=== PATIENT | male | born 2000 | race American Indian/Alaskan Native ===

== ENCOUNTER 2019-08-28 22:52 | Emergency (ER) | payer OTHER ==
[2019-08-28 23:28] VITALS: BP 119/63
--- NOTE | 2019-08-29 05:59 | Emergency Department Report ---
ED General Adult HPI - General Chief complaint: Chest Pain Stated complaint: BACK/CHEST PAIN Time Seen by Provider: 08/29/19 05:48 Source: patient Mode of arrival: Ambulatory Limitations: No Limitations - History of Present Illness Initial comments: Mr. Love is a 19-year-old -Citizen Of [place] male who presents for generalized body aches 1 week history of saying for the last year. Patient denies shortness of breath, no nausea /vomiting ,no fever or chills, no wheezing. Pain is relieved by belching. Pain is exacerbated by nothing per patient. Patient is tolerating by mouth intake. Patient is sleeping quietly at this time with nad. . Onset/Timin -: year(s) Location: chest, back, upper extremity, lower extremity Radiation: back Severity scale (0 -10): 4 Quality: aching Consistency: intermittent Improves with: none Worsens with: none Associated Symptoms: denies other symptoms Treatments Prior to Arrival: none - Related Data Previous Rx's Medication Instructions Recorded Last Taken Type Ibuprofen [Motrin 800 MG tab] 800 mg PO Q8HR PRN #30 tablet 08/29/19 Unknown Rx Allergies Allergy/AdvReac Type Severity Reaction Status Date / Time No Known Allergies Allergy Unverified 08/29/19 01:24 ED Review of Systems ROS: Stated complaint: BACK/CHEST PAIN Other details as noted in HPI Constitutional: denies: chills, fever Eyes: denies: eye pain, eye discharge, vision change ENT: denies: ear pain, throat pain Respiratory: denies: cough, shortness of breath, wheezing Cardiovascular: chest pain (right lateral chest wall pain ). denies: palpitations Endocrine: no symptoms reported Gastrointestinal: denies: abdominal pain, nausea, vomiting, diarrhea, constipation, melena Genitourinary: denies: urgency, dysuria, frequency, hematuria, discharge Musculoskeletal: back pain (aching intermittent). denies: joint swelling, arthralgia, myalgia Skin: denies: rash, lesions Neurological: denies: headache, weakness, numbness, paresthesias, confusion, abnormal gait, vertigo Psychiatric: denies: anxiety, depression Hematological/Lymphatic: denies: easy bleeding, easy bruising ED Past Medical Hx - Past Medical History Previous Medical History?: Yes Additional medical history: Back pain since age 13 - Surgical History Past Surgical History?: No - Social History Smoking Status: Never Smoker Substance Use Type: None - Medications Home Medications: Home Medications Medication Instructions Recorded Confirmed Last Taken Type Ibuprofen [Motrin 800 MG tab] 800 mg PO Q8HR PRN #30 tablet 08/29/19 Unknown Rx ED Physical Exam - General Limitations: No Limitations General appearance: alert, in no apparent distress - Head Head exam: Present: atraumatic, normocephalic - Eye Eye exam: Present: normal appearance, PERRL, EOMI Pupils: Present: normal accommodation - ENT ENT exam: Present: mucous membranes moist - Neck Neck exam: Present: normal inspection, full ROM. Absent: tenderness, lymphad enopathy - Respiratory Respiratory exam: Present: normal lung sounds bilaterally. Absent: respiratory distress, wheezes, stridor, chest wall tenderness - Cardiovascular Cardiovascular Exam: Present: regular rate, normal rhythm, normal heart sounds. Absent: systolic murmur, diastolic murmur, rubs, gallop - GI/Abdominal GI/Abdominal exam: Present: soft, normal bowel sounds. Absent: distended, tenderness, bruit, hernia - Rectal Rectal exam: Present: deferred - Extremities Exam Extremities exam: Present: normal inspection, full ROM, normal capillary refill. Absent: tenderness, pedal edema - Back Exam Back exam: Present: normal inspection, full ROM. Absent: tenderness, CVA tenderness (R), CVA tenderness (L), vertebral tenderness - Neurological Exam Neurological exam: Present: alert, oriented X3, CN II-XII intact, normal gait - Psychiatric Psychiatric exam: Present: normal affect, normal mood - Skin Skin exam: Present: warm, dry, intact, normal color. Absent: rash ED Course Vital Signs 08/28/19 23:25 Temperature 98.1 F Pulse Rate 68 Respiratory 18 Rate Blood Pressure 119/63 O2 Sat by Pulse 98 Oximetry ED Medical Decision Making - Medical Decision Making thid is musculoskeletal pain versus malingering , plan: ibuprofen prn pain bodyache, follow up wiht pcp in 2-3 days return to emergency if symptoms worsen. Critical care attestation.: If time is entered above; I have spent that time in minutes in the direct care of this critically ill patient, excluding procedure time. ED Disposition Clinical Impression: Body aches Disposition: TO HOME OR SELFCARE Is pt being admited?: No Does the pt Need Aspirin: No Condition: Stable Instructions: Musculoskeletal Pain (ED) Prescriptions: Ibuprofen [Motrin 800 MG tab] 800 mg PO Q8HR PRN #30 tablet PRN Reason: Pain , Severe (7-10) Referrals: AMY BRUNO MD [Primary Care Provider] - 3-5 Days Forms: Work/School Release Form(ED) Time of Disposition: 06:04
== END 2019-08-29 06:15 | disposition home or self-care (01) ==
LOC: ED 22:52
DX: M79.10 Myalgia, unspecified site (principal); Z79.1 Long term (current) use of non-steroidal anti-inflammatories (NSAID)
CPT/HCPCS: 93005; 93010; 99282

== ENCOUNTER 2021-03-08 13:01 | Emergency (ER) | payer SELFPAY ==
--- NOTE | 2021-03-08 15:43 | Emergency Department Report ---
ED General Adult HPI - General Chief complaint: Upper Respiratory Infection Stated complaint: CHEST PAIN, NAUSEA Time Seen by Provider: 03/08/21 15:33 Source: patient Mode of arrival: Ambulatory Limitations: No Limitations - History of Present Illness Initial comments: 20-year-old male patient presents to the emergency department with complaints of chest pain and associated nausea starting 1 week ago. Describes the chest pain as "sharp," worse with exertion, relieved with rest. Patient states he noticed the pain was worse while he was at work. Patient works in a warehouse requiring constant physical activity. No history of hypertension, diabetes, hyperlipidemia. Patient does not use tobacco. No family history of early heart disease. No medications prior to arrival. Denies fever, chills, cough, shortness of breath, palpitations, syncope, wheezing, lower extremity pain/swelling. Denies all other complaints at this time. - Related Data Previous Rx's Medication Instructions Recorded Last Taken Type Ibuprofen [Motrin 800 MG tab] 800 mg PO Q8HR PRN #30 tablet 08/29/19 Unknown Rx Famotidine [Pepcid] 20 mg PO BID 10 Days tablet 03/08/21 Unknown Rx Allergies Allergy/AdvReac Type Severity Reaction Status Date / Time No Known Allergies Allergy Verified 03/08/21 17:06 ED Review of Systems ROS: Stated complaint: CHEST PAIN, NAUSEA Other details as noted in HPI Other: GENERAL: Negative for fever, chills, weight change, anorexia, fatigue. ENT: Negative for ear pain, difficulty hearing, sore throat, nasal congestion, epistaxis. CARDIOVASCULAR: Positive for chest pain. PULMONARY: Negative for cough, dyspnea, wheezing, orthopnea, cyanosis. GASTROINTESTINAL: Positive for nausea. MUSCULOSKELETAL: Negative for joint pain, joint swelling, myalgias, back pain, neck pain. NEUROLOGICAL: Negative for headache, seizure, syncope, paresthesias, weakness. INTEGUMENTARY: Negative for erythema, rash, diaphoresis, laceration, ecchymosis. HEMATOLOGICAL: Negative for hemoptysis, hematemesis, hematochezia, hematuria. PSYCHIATRIC: Negative for hallucinations, suicidal ideation, homicidal ideation, anxiety, depression. ED Past Medical Hx - Past Medical History Previous Medical History?: No Additional medical history: Back pain since age 13 - Surgical History Past Surgical History?: No - Social History Smoking Status: Never Smoker Substance Use Type: None - Medications Home Medications: Home Medications Medication Instructions Recorded Confirmed Last Taken Type Ibuprofen [Motrin 800 MG tab] 800 mg PO Q8HR PRN #30 tablet 08/29/19 Unknown Rx Famotidine [Pepcid] 20 mg PO BID 10 Days tablet 03/08/21 Unknown Rx ED Physical Exam - General Limitations: No Limitations - Other Other exam information: General: Awake and alert. No acute distress. Head: Atraumatic, normocephalic. Eyes: EOMI. Pupils are equal and round. Normal sclera and conjunctiva. ENT: Oral mucosa is moist. Normal pharyngeal exam. Neck: Supple. No lymphadenopathy. Pulmonary: No respiratory distress. Clear to auscultation bilaterally. Cardiac: Regular rate and rhythm. Pulses are palpable and equal bilaterally. No lower extremity cyanosis or edema. Skin: Warm and dry. No rashes. Abdomen: Soft, non-tender, non-protuberant. No guarding, rigidity, or rebound. Bowel sounds are normal. No organomegaly or masses noted. Back: Normal alignment. No CVA tenderness. Extremities: Symmetrical. Full range of motion intact. Neurological: Alert and oriented, appropriately interactive, no focal deficits. Psych: Cooperative. Appropriate mood and affect. Speech is evenly metered. Thoughts are logically construed. ED Course Vital Signs 03/08/21 13:11 Temperature 98.3 F Pulse Rate 63 Respiratory 16 Rate Blood Pressure 131/87 [Right] O2 Sat by Pulse 100 Oximetry ED Medical Decision Making - EKG Data 03/08/21 17:07 EKG shows sinus bradycardia with a ventricular rate of 53 bpm. First-degree AV block with VT interval 213 ms. Normal axis. Normal QT interval. Good R wave progression. Early repolarization noted to anterolateral leads. EKG over read by attending emergency physician, who agrees with this interpretation. - Medical Decision Making Differential diagnosis including but not limited to: cardiac arrhythmia, pericarditis, pericardial effusion/cardiac tamponade, pneumothorax, pleural eff usion, pneumonia, pulmonary embolism, esophagitis Patient presents to the emergency department with signs and/or symptoms that arise low risk clinical suspicion for pulmonary embolism. The patient has none of the following clinical criteria: age >50, heart rate >100, room air O2 saturation <94%, history of DVT/PE, recent trauma/surgery, hemoptysis, exogenous estrogen, or signs/symptoms of DVT. As a result, this patient has very low probability of pulmonary embolism and further testing is not indicated. On reevaluation, patient is stable. He is asymptomatic. EKG without acute injury pattern. Chest x-ray is negative. Exceedingly low clinical suspicion for acute coronary syndrome given patient's age and absence of cardiac risk factors. No clinical indication for further diagnostic work-up on an emergent basis at this time. Suspect patient's discomfort may be attributable to GERD/esophageal irritation in the setting of associated nausea. Patient does admit to frequent consumption of spicy foods. Patient will be discharged home with prescription for H2 zion and referred to primary care provider for close outpatient follow-up. Patient expressed understanding and is agreeable to plan of care. Lifestyle modifications discussed. Strict return precautions provided. Repeat exam is unremarkable and benign. History, exam, diagnostic testing, and current condition do not suggest worrisome pathology to warrant further testing, continued ED treatment, admission, or surgical evaluation at this point. Given the low probability of a significant medical illness, it would be more likely to result in harm than benefit to perform further testing at this stage. Discussed findings, presumptive diagnosis, need for follow-up and specific signs/symptoms that should prompt immediate return to the emergency department. Instructions were explained in detail to the patient in addition to giving written discharge information. Patient expressed understanding and was given the opportunity to ask questions, all of which were satisfactorily answered prior to discharge home. Critical care attestation.: If time is entered above; I have spent that time in minutes in the direct care of this critically ill patient, excluding procedure time. ED Disposition Clinical Impression: Nonspecific chest pain Disposition: DC-01 TO HOME OR SELFCARE Is pt being admited?: No Does the pt Need Aspirin: No Condition: Stable Instructions: Nonspecific Chest Pain, Adult Additional Instructions: Take Tylenol every 4 hours as needed for pain. Take Pepcid as directed. Avoid greasy/fatty/spicy foods, which may worsen your symptoms. Follow-up with primary care provider this week. Call tomorrow to schedule an appointment. See referral information below. Return to the emergency department immediately for new or worsening symptoms. Prescriptions: Famotidine [Pepcid] 20 mg PO BID 10 Days tablet Referrals: FRANCOIS RENEE MD [Staff Physician] - 3-5 Days [facility] [Provider Group] - 3-5 Days [facility] [Outside] - 3-5 Days [facility] [Outside] - 3-5 Days [facility] [Outside] - 3-5 Days
--- NOTE | 2021-03-08 16:12 | XRay Report ---
CHEST PA AND LATERAL VIEWS INDICATION: chest pain. COMPARISON: None. FINDINGS: Support devices: None. Heart: Within normal limits. Lungs/Pleura: No acute pulmonary or pleural findings. IMPRESSION: 1. No acute findings. Signer Name: Parveen Casas MD Signed: 03/08/2021 4:07 PM Workstation Name: [id number]
[2021-03-08 17:23] VITALS: BP 129/85
--- NOTE | 2021-03-10 14:01 | Electrocardiograph Report ---
[facility] Test Date: 2021-03-08 Test Time: 16:58:54 Pat Name: AJITH LEAL Department: Room: Gender: M [employer]: LYUBOV : 2000 Requested By: NARDA TURNER Order Number: [id number] Reading MD: Eleni Mayo Measurements Intervals [place] Rate: 53 P: 73 IL: 213 QRS: 83 QRSD: 108 T: 58 QT: 391 QTc: 367 Interpretive Statements Sinus bradycardia Prolonged [place] interval Anteroseptal infarct, age indeterminate Early repolarization ST changes No previous ECG available for comparison Electronically Signed On 03-10-2021 14:01:05 EDT by Eleni Mayo
== END 2021-03-08 17:23 | disposition home or self-care (01) ==
LOC: ED 13:01
DX: R07.89 Other chest pain (principal); R11.0 Nausea
CPT/HCPCS: 71046; 93005; 99283